=== PATIENT | female | born 1940 | race Caucasian/White ===

== ENCOUNTER → 2017-05-28 | Outpatient (CLI) | payer OTHER, BC ==
[~2017-05-28] MED LIST: ASA5UEC PO; ASPIRIN325 PO; ASPIRIN81 M2 PO; ATENOLOL 50MG T50 M1 PO; CALCIUM 600 +1 EAC1 PO; CITRACAL PLUS1 EACH PO; COZAAR 25 MG TA25 M1 PO; COZAAR100 MG PO; LISINOPRIL5 MG PO; MOBIC15 MG PO; MULTAQ 400 MG400 MG PO; MULTIVITAMINS PO; PLAVIX 75 MG TA75 M1 PO; PLAVIX 75 MG TA75 MG PO; PRADAXA150 MG PO; PRAVACHOL40 MG PO; SORINE 80 MG TA80 M1 PO; TOPROL XL50 MG PO; UNISOM SLEEP AI25 MG PO
== END ==
LOC: RAD 11:07
DX: Z12.31 Encounter for screening mammogram for malignant neoplasm of breast (principal)